=== PATIENT | female | born 1995 | race Caucasian/White ===

== ENCOUNTER 2016-12-28 15:45 | Emergency (ER) | payer BC ==
--- NOTE | 2016-12-28 16:31 | UC ---
Lower Extremity/Ankle HPI - HPI Summary HPI Summary: pt reports jumping in air thursday evening and landed "wrong" on right foot and now c/o swelling, bruising and minimum weight bearing. - History of Current Complaint Chief Complaint: UCLowerExtremity Stated Complaint: RIGHT FOOT INJURY Time Seen by Provider: 12/28/16 16:14 Hx Obtained From: Patient Hx Last Menstrual Period: implanon implant ?: No Onset/Duration: Sudden Onset Severity Initially: Moderate Severity Currently: Moderate Aggravating Factor(s): Standing, Ambulation Alleviating Factor(s): Rest, Elevation Able to Bear Weight: Yes - minimum - Risk Factors Gout Risk Factors: Negative DVT Risk Factors: Negative Septic Arthritis Risk Factor: Negative - Allergies/Home Medications Allergies/Adverse Reactions: Allergies Allergy/AdvReac Type Severity Reaction Status Date / Time No Known Allergies Allergy Verified 12/28/16 16:02 Home Medications: Home Medications Albuterol HFA INHALER* [Ventolin HFA Inhaler*] 1 puff Q6HR PRN 12/28/16 [ History Confirmed 12/28/16] Cetirizine* [ZyrTEC 10 MG TAB*] 1 tab DAILY 12/28/16 [History Confirmed 12/28/16 ] Citalopram TAB* [Celexa TAB*] 1 tab DAILY 12/28/16 [History Confirmed 12/28/16] Etonogestrel IMPLANT(NF) [Implanon (NF)-not available] 1 imp ONCE 12/28/16 [ History Confirmed 12/28/16] PMH/Surg Hx/FS Hx/Imm Hx Previously Healthy: Yes - Surgical History Surgical History: None - Family History Known Family History: Positive: Cardiac Disease - Social History Occupation: Student Lives: Dormitory/Roommates Alcohol Use: Occasionally Substance Use Type: None Smoking Status (MU): Never Smoked Tobacco Have You Smoked in the Last Year: No - Immunization History Most Recent Influenza Vaccination: 2017 Review of Systems Constitutional: Negative Skin: Bruising - right foot Eyes: Negative ENT: Negative Respiratory: Negative Cardiovascular: Negative Gastrointestinal: Negative Genitourinary: Negative Motor: Decreased ROM - right foot Neurovascular: Negative Musculoskeletal: Arthralgia - right foot, Decreased ROM - right foot, Edema - right foot, Myalgia - right foot Neurological: Negative Psychological: Negative Is Patient Immunocompromised?: No All Other Systems Reviewed And Are Negative: Yes Physical Exam Triage Information Reviewed: Yes Appearance: Well-Appearing Vital Signs: Initial Vital Signs Temp 98.5 F 12/28/16 16:04 Pulse 105 12/28/16 16:04 Resp 16 12/28/16 16:04 BP 118/62 12/28/16 16:04 Pulse Ox 98 12/28/16 16:04 Vital Signs Reviewed: Yes Eye Exam: Normal ENT Exam: Normal Neck exam: Normal Respiratory: Positive: No respiratory distress Musculoskeletal Exam: Other Musculoskeletal: Positive: ROM Limited @ - right foot, Edema @ - right foot Neurological Exam: Normal Psychological Exam: Normal Skin Exam: Other - bruising to right anterior foot Lower Extremity Course/Dx - Course Course Of Treatment: IMPRESSION: OBLIQUE MINIMALLY DISPLACED FRACTURE OF THE DISTAL FIFTH METATARSAL. - Differential Dx/Diagnosis Differential Diagnosis/HQI/PQRI: Contusion, Fracture (Closed) Provider Diagnoses: right foot fracture Discharge - Discharge Plan Condition: Stable Disposition: HOME Patient Education Materials: Foot Fracture in Adults (ED) Referrals: Natividad Montoya MD [Medical Doctor] - 1 Day Additional Instructions: Please follow up with your PCP or return to clinic. Please follow up with a orthopedic provider. We have provided a referral for you if needed. xray:
--- NOTE | 2016-12-28 16:47 | RAD ---
HISTORY: Fall, right foot pain COMPARISONS: None VIEWS: 3, Frontal, lateral, and oblique views of the right foot FINDINGS: BONE DENSITY: Normal. BONES: There is an oblique minimally displaced fracture of the distal fifth metatarsal. JOINTS: There is no arthropathy. ALIGNMENT: There is no dislocation. SOFT TISSUES: Unremarkable. OTHER FINDINGS: None. IMPRESSION: OBLIQUE MINIMALLY DISPLACED FRACTURE OF THE DISTAL FIFTH METATARSAL.
== END 2016-12-28 17:14 | disposition home or self-care (01) ==
LOC: UCCORT 15:45
DX: S92.351A Displaced fracture of fifth metatarsal bone, right foot, initial encounter for closed fracture (principal); Y93.39 Activity, other involving climbing, rappelling and jumping off; Y92.9 Unspecified place or not applicable
CPT/HCPCS: 99203; G0463